=== PATIENT | female | born 1990 | race Caucasian/White ===

== ENCOUNTER 2017-09-21 22:01 | Emergency (ER) | payer MEDICAID ==
[~2017-09-21] VITALS: Ht 175.3 cm; Wt 63.9 kg
[~2017-09-21 22:01] MED LIST: DIPH-423 PO; DIPH25CA83 PO; LEVA15HF4 IH; TRIA80OI TOP
[2017-09-21 22:05] VITALS: BP 144/80
[2017-09-21 22:45] LABS: URINE HCG NEGATIVE (NEG)
[2017-09-21 22:46] LABS: CLARITY,URINE Clear (Clear); COLOR,URINE Yellow (Yellow); GLUCOSE, URINE Negative (Neg); KETONES,URINE Negative (Neg); LEUKOCYTE ESTERASE ,URINE Negative (Neg); NITRITES, URINE Negative (Neg); OCCULT BLOOD,URINE Negative (Neg); PH,URINE 6.5 (4.8-8.0); PROTEIN,URINE Negative (Neg); UROBILINOGEN,URINE 0.2 E.U/dL (0.2-1.0)
[2017-09-21 22:54] LABS: UA COLLECTION TYPE CLN CATCH MIDSTREAM
[2017-09-21] MEDS ORDERED: fluconazole 100mg tablet PO ONE (23:05)
[2017-09-21] MEDS ORDERED: azithromycin 250mg tablet PO ONE (23:30)
[2017-09-21] MEDS ORDERED: metroNIDAZOLE 500mg tablet PO ONE (23:30)
[2017-09-21] MEDS ORDERED: CefTRIAXone 250MG IM Kit w/LIDOcaine IM ONE (23:30)
== END 2017-09-22 00:13 | disposition home or self-care (01) ==
LOC: ER 22:01
DX: N76.0 Acute vaginitis (principal); J45.909 Unspecified asthma, uncomplicated; Z20.2 Contact with and (suspected) exposure to infections with a predominantly sexual mode of transmission
CPT/HCPCS: 36415; 81003; 81025; 87210; 87491; 87591; 96372; 99284; J0696; J3490